=== PATIENT | female | born 1945 | race Caucasian/White ===

== ENCOUNTER 2016-11-30 13:48 | Outpatient (CLI) | payer OTHER, MEDICARE ==
--- NOTE | 2016-11-30 16:53 | DIAGNOSTIC IMAGING REPORT ---
PROCEDURE: US COMPLETE PELVIC INDICATION: RLQ PAIN, initial encounter TECHNIQUE: Transabdominal moreno scale and color Doppler sonographic images. . The patient declined transvaginal scanning. COMPARISON: None. FINDINGS: Anteverted uterus measures 6.6 x 5 x 4.8 cm. There is a 3.8 cm posterior fibroid with dystrophic calcifications. Endometrium is not well visualized. Ovaries are not well visualized but there is no evidence of an adnexal mass or free fluid in the cul-de-sac. Normal kidneys. IMPRESSION: 1. 3.8 cm fibroid 2. Nonvisualization of the ovaries consistent with atrophy
== END 2016-11-30 23:00 ==
LOC: US SRH 13:48
DX: D25.9 Leiomyoma of uterus, unspecified (principal)